=== PATIENT | male | born 2000 | race Caucasian/White ===

== ENCOUNTER 2020-10-01 19:09 | Emergency (ER) | payer OTHER, SELFPAY ==
[2020-10-01 19:10] VITALS: BP 146/101; PULSE 87; RESP 16; TEMP 36.1; O2SAT 100; BMI 22.1
--- NOTE | 2020-10-01 20:33 | RAD_ITS ---
STUDY: X-RAY CHEST REASON FOR EXAM: Male, 20 years old. CHEST PAIN. HEARTBURN ONSET LAST THURSDAY. PT SATES HIS CHEST WAS PHYSICALLY HOT TO TOUCH AND STOMACH WAS HOT TOO. TECHNIQUE: Single frontal view of the chest. COMPARISON: None. FINDINGS: The lungs are clear and expanded. There is no demonstrated pleural abnormality. Normal size heart. Normal mediastinum and herber. Normal visualized pulmonary arteries. Normal visualized aortic arch and descending thoracic aorta. Normal visualized thoracic spine. Normal visualized ribs, clavicles, and shoulders. There is no demonstrated abnormality of the visualized soft tissue structures of the upper abdomen. RAD/Chest 1 View (Portable) IMPRESSION: No acute cardiopulmonary process. Electronically Signed: Manjula Avilez MD at 20:56 EST Tel , Service support ,
[2020-10-01 20:47] LABS: Absolute Lymphocyte Count 2.73 X10^3/uL (0.83-4.51); Absolute Neutrophil Count 4.8 X10^3/uL (2.0-7.7); Basophil# 0.06 X10^3/uL; Basophil% 0.7 % (0-1); Eosinophil# 0.06 X10^3/uL; Eosinophils% 0.7 % (0-5); Hematocrit 43.3 % (40-54); Hemoglobin 15.6 g/dL (13.0-16.5); Lymphocyte # 2.73 X10^3/ul (4.0); Lymphocyte % 32.3 % (19-41); Mean Corpuscular Hgb 31.5 pg (27.0-32.0); Mean Corpuscular Volume 87.3 fL (80-94); Mean Platelet Vol. 10.1 fl (6.2-12.0); Monocyte# 0.73 X10^3/uL; Monocyte% 8.6 % (0-10); NRBC Flagged by Analyzer 0 % (0-5); Neutrophil # 4.84 X10^3/uL (2.7-7.7); Neutrophil % 57.5 % (47-70); Platelet Count 242 K/mm3 (150-450); RBC Distribution Width CV 12.3 % (11.6-14.6); RBC Distribution Width SD 38.6 fl (35.1-43.9); Red Blood Count 4.96 M/mm3 (4.6-6.2); White Blood Count 8.4 K/mm3 (4.4-11.0)
[2020-10-01 21:09] VITALS: BP 128/78; PULSE 78; RESP 18; O2SAT 98
[2020-10-01 21:53] LABS: Anion Gap 7 (5-15); BUN 13 mg/dL (7-18); BUN/Creat Ratio 14.8 RATIO (10-20); Calcium,Total 9.4 mg/dL (8.5-10.1); Chloride 106 mmol/L (98-107); Creatinine, Serum 0.88 mg/dL (0.70-1.30); EST Glomerular Filtration Rate 116 mL/min (>60); Est Glom Filt Rate - Afr Amer 140 mL/min (>60); Estimated Creatinine Clearance 127.79 ml/min; Glucose 91 mg/dL (74-106); Potassium 3.5 mmol/L (3.5-5.1); Sodium Level 142 mmol/L (136-145)
--- NOTE | 2020-10-01 21:57 | ED.DCSUM_ITS ---
History of Present Illness Chief Complaint: Abd Pain Informant: Patient Narrative: Patient is a 20-year-old male with a past medical history of migraines who presents to the emergency department for pain in his sternal region that radiates around his chest. He states it is a very superficial feeling. This has been going on for 1 week. He did talk to his PCP who prescribed him Protonix for suspected reflux symptoms. He states that this caused a burning sensation across his chest so he discontinued it. No associated shortness of breath. Pushing on his chest does make his symptoms worse. He does lift a lot of heavy objects at work. No family history of cardiac disease at a young age. He denies any leg swelling or calf pain. No significant abdominal pain. No nausea vomiting. No diaphoresis. He denies any cough. He did recently get over a infection with coronavirus last month. Past Medical History - Allergies and Home Meds Allergies/Adverse Reactions: Allergies No Known Allergies Allergy (Verified 10/01/20 19:14) Primary Care Physician: MACKENZIE SHANNON [Other] - 3-5 Days Prior records reviewed: Yes Past Medical History: None Surgical History: no surgical history Smoking Status: Never smoker Review of Systems All systems negative except as indicated General: Denies: Chills, Fever, Sweats Eyes: Denies: Visual changes - bilaterally, Diplopia ENT: Denies: Rhinorrhea, Sore throat Cardiovascular: Reports: Chest pain - Chest wall. Denies: Palpitations Respiratory: Denies: Dyspnea, Cough, Dyspnea on exertion Gastrointestinal: Denies: Abdominal pain, Nausea, Vomiting, Diarrhea Musculoskeletal: Denies: Back pain, Swelling, Extremity Pain Skin: Denies: Rash, Wounds Neurological: Denies: Headache, Weakness, Numbness Physical Exam Vital Signs/Narrative: Vital Signs Temp Pulse Resp BP Pulse Ox 10/01/20 19:10 96.9 F L 87 16 146/101 H 100 Inital Vital Signs reviewed: Yes General: Well nourished, Well developed, No Acute Distress Head: Normocephalic, Atraumatic Eyes: Perrl, EOMI ENT: Moist mucous membranes, No rhinorrhea Neck: Supple, Nontender Cardiovascular: Regular rate, Regular rhythm, No murmurs Respiratory: No distress, CTA bilaterally, Chest tenderness - Along anterior lateral ribs on the right Abdomen: Soft, Nontender, Nondistended, Normal bowel sounds Back: Nontender, Normal Inspection Extremities: Nontender, No edema. Negative for: Calf Tenderness Skin: Normal color, No rash Neurological: Alert, Oriented x3, Normal Strength, Normal Sensation Psychological: Normal affect, Normal Mood Diagnostic/Tx/Re-eval Chest X-Ray - ED: 1 View - Single view chest x-ray interpreted by myself. No acute cardiopulmonary abnormality. Cardiac silhouette appears normal. No acute cardiopulmonary abnormality. Agree with radiologist. - Medical Decision Making Patient presents to the emergency department for chest wall pain. This is reproducible on physical exam. He believes that all very superficial. He was initially treated with Protonix but did not help and it made him feel worse. He has been completely asymptomatic throughout ED stay. I have very low concern for CAD, PE causing the patient's symptoms. Basic lab work was obtained by protocol. I did check lipase as he was complaining of some reflux symptoms. His symptoms do sound related to costochondritis as he does a lot of heavy lifting, just got over a coronavirus infection and symptoms are reproducible. He otherwise satting well on room air and is not tachycardic. He is in no acute distress and asymptomatic again. Recommend symptomatic treatment with NSAIDs. Patient's lab work did not reveal any significant acute abnormality. He has been stable throughout ED stay without any repeat symptoms. Will discharge home in stable condition. He understands and is agreeable with this plan. Will Have him follow-up with his PCP. All questions were answered. ED Disposition - Plan for ED Patient: Disposition: Home or Assisted Living Diagnosis: Chest wall pain Instructions: ED Chest Pain, Noncardiac Prescriptions: Naproxen [Naprosyn] 500 mg PO BID #14 tab Transmission Status: Received by [facility] #[id number] Referrals: MACKENZIE SHANNON [Other] - 3-5 Days
[2020-10-01 22:38] LABS: AST(SGOT) 8 U/L (15-37); Alanine Aminotransfer ALT/SGPT 16 U/L (16-61); Albumin, Serum 4.8 g/dL (3.2-5.0); Alkaline Phosphatase 54 U/L (45-117); Bilirubin, Direct 0.24 mg/dL (0.00-0.30); Globulin 3.1 g/dL (2.2-4.2); Lipase 97 U/L (73-393); Protein, Total 7.9 g/dL (6.4-8.2)
== END 2020-10-01 22:49 | disposition home or self-care (01) ==
PROVIDERS: Emergency Provider Emergency Medicine
DX: R07.89 Other chest pain (principal)
CPT/HCPCS: 71045; 80048; 80076; 83690; 84484; 85025; 99283; A4216

== ENCOUNTER 2021-03-03 13:57 | Emergency (ER) | payer OTHER, SELFPAY ==
[2021-03-03 13:58] VITALS: BP 143/85; PULSE 76; RESP 14; TEMP 37.1; O2SAT 100; BMI 23.3
--- NOTE | 2021-03-03 14:32 | RAD_ITS ---
STUDY: X-RAY - RIGHT FOOT CLINICAL: Male, 20 years old. pain TECHNIQUE: 3 view(s) of the foot. COMPARISON: None. FINDINGS: Please see the impression. RAD/Foot min 3 Views IMPRESSION: No acute fracture or dislocation in the right foot. No osseous erosion. No radiopaque foreign body. Electronically Signed: Humphrey Medrano MD at 15:10 EDT Tel , Service support ,
--- NOTE | 2021-03-03 14:40 | ED.VIS.LOWEX ---
HPI History of Present Illness Chief Complaint: Lower Extremity Injury Informant: patient Onset/Context/Timing Onset: Weeks (1) Context: Gradual Onset Timing: Continuous Quality of Pain: Aching Location: right midfoot dorsum Current Severity: Mild Maximum Severity: Severe Worsened by: certain movements while weightbearing Relieved by: resting Associated Symptoms Associated Symptoms: Negative for Parasthesia, Weakness and Loss of Funtion Narrative Narrative: Patient has had spontaneous onset of pain, he states that he wears steel toed boots and walks a lot at work, and often plays basketball after work. He noticed it was hurting prior to playing basketball last week, it hurt worse after basketball, and then last night walking up 5 stairs into his apartment, when he pushed himself up with the affected foot it really hurt worse for an hour after that. He has noticed no skin changes or systemic symptoms. He denies any known injury to cause this. [facility] Medical History (Updated 03/03/21 @ 15:[address] Bernardino Barroso MD) Migraines no medical history Home Medications NK 03/03/21 [History Last Taken Unknown] Allergy/AdvReac Type Severity Reaction Status Date / Time No Known Allergies Allergy Verified 10/01/20 19:14 Social History Smoking Status: Never smoker ROS ROS ED Constitutional Constitutional ED: Denies chills or fever(s) Musculoskeletal Musculoskeletal: Reports extremity pain; Denies neck pain Integumentary Denies Abrasions, rash or wounds Neurologic Neurologic: Denies paresthesias or weakness EXAM Physical Exam Const Vital Signs: 03/03/21 13:58 Temperature 98.8 F Temperature Source Temporal Pulse Rate 76 Respiratory Rate 14 Blood Pressure 143/85 H Blood Pressure Mean 104 Pulse Ox 100 Oxygen Delivery Method Room Air Positive well nourished and well developed General Appearance ED: well developed and NAD Neck full ROM and supple Back/Spine normal ROM and normal to inspection Extremity normal to inspection, full ROM, normal capillary refill, no joint enlargement, no clubbing, cyanosis or edema, no calf tenderness and no pedal edema Right Lower Extremity: foot and digits Positive for inspection (Normal), palpation (Mild tenderness to palpation in the midfoot, just proximal to metatarsals 2-4 approximately; no crepitance or swelling. Normal to inspection.), ROM (Normal), neurovascular exam (Normal) and tendon exam (Normal) Neuro oriented x3, no focal motor deficits and no sensory deficits noted Sensorium / Orientation: alert Psych mental status grossly normal and thought process normal Skin no wounds Rashes: no rashes MDM MDM MDM Narrative Medical decision making narrative: My interpretation 3 views x-rays of the right are normal and unremarkable. Patient was advised use pain as his guide, anti-inflammatories, ice, rest as needed, follow-up with podiatry, it is certainly possible he has a stress fracture but he really has not been exerting a significant amount of repetitive trauma other than playing basketball and walking at work, so I would also include soft tissue problems like Rangel's neuroma and bursitis in the differential diagnosis, at the patient states that the pain radiates distally toward the MTPJ's. He will be offered crutches at discharge. Radiography Diagnostic Testing: Radiology Impression Foot X-Ray 03/03/21 14:32 IMPRESSION: No acute fracture or dislocation in the right foot. No osseous erosion. No radiopaque foreign body. Electronically Signed: Humphrey Medrano MD at 15:10 EDT Tel , Service support , Discharge Plan Triage Chief Complaint: Lower Extremity Injury ED Provider: Bernardino Barroso Dx/Rx/DC Orders Clinical Impression: Acute pain of right foot Instructions: ED RICE Prescriptions: No Action NK RF: 0 Primary Care Provider: Care Physician,No Primary Referrals: Dana Bell DPM [STAFF PHYSICIAN] - (Call for appointment/follow-up) Disposition Disposition: Home, self care
[2021-03-03 15:31] VITALS: BP 131/81; PULSE 63; RESP 18; O2SAT 99
== END 2021-03-03 15:32 | disposition home or self-care (01) ==
PROVIDERS: Emergency Provider Emergency Medicine
DX: M79.671 Pain in right foot (principal)
CPT/HCPCS: 73630; 99282; A4216